=== PATIENT | female | born 1965 | race Caucasian/White ===

== ENCOUNTER 2016-07-14 13:04 | Emergency (ER) | payer OTHER ==
[~2016-07-14] VITALS: Ht 157.5 cm; Wt 48.6 kg
[~2016-07-14 13:04] MED LIST: AZITHROMYCIN250 MG PO; KEFLEX500 MG PO; MOTRIN400 MG PO; MOTRIN800 MG PO; NAPROXEN500 MG PO; NO MEDS; NOHOMEMEDS; NORCO 5/3251 TABLET PO; PERCOCET 5/31 TABLET PO; PREDNISONE10 MG PO; VENTOLIN HFA18 GM IH
[2016-07-14 14:27] LABS: HEMATOCRIT 43.4 % (36.0-46.0); MCH 32.9 PG (29.0-34.0); MCHC 34.3 G/DL (30.0-36.0); MCV 95.8 FL (83-99); MEAN PLAT.VOLUME 9.1 uM^3 (9.5-12.4); PLATELET COUNT 243 K/uL (156-360); RBC DIS.WIDTH-CV 12.8 % (11.8-14.6); RBC DIS.WIDTH-SD 43.4 % (39-53); RED BLOOD COUNT 4.53 M/uL (3.80-5.20)
[2016-07-14 14:32] LABS: CHLORIDE 104 mEq/L (99-109); SODIUM 140 mEq/L (136-147)
[2016-07-14 14:33] LABS: ADD MIUA? YES; BILIRUBIN NEGATIVE; BLOOD SMALL; COLOR YELLOW ((YELLOW)); GLUCOSE (STRIP) NEGATIVE; KETONES 20; LEUKOCYTES LARGE; NITRITE NEGATIVE; PROTEIN (STRIP) 30; UROBILINOGEN 0.2 MG/DL (0.2-1.0)
[2016-07-14 14:34] LABS: GLUCOSE 86 mg/dL (70-99)
[2016-07-14 14:35] LABS: ANION GAP 10 MEQ/L (2-14)
[2016-07-14 14:36] LABS: TOTAL BILIRUBIN 0.5 mg/dL (0.0-1.0)
[2016-07-14 14:38] LABS: ALKALINE PHOSPHATASE 72 IU/L (3-129); GFR ESTIMATE (CALCULATED) > 59 mL/min/
[2016-07-14 14:39] LABS: UREA NITROGEN (BUN) 7 mg/dL (9-23)
[2016-07-14 14:48] LABS: QUANTITATIVE HCG < 4.0 MIU/ML
[2016-07-14 14:58] LABS: LIPASE 16 U/L (1.0-51.0)
[2016-07-14 15:17] LABS: EPITHELIAL CELLS 2+ /HPF; RED BLOOD CELLS RARE /HPF (0-5)
[2016-07-14 15:18] LABS: BACTERIA 1+ /HPF; MUCUS NONE SEEN /LPF; UCUL ADDED? NO
[2016-07-14 18:43] VITALS: BP 141/83
[2016-07-15] MEDS ORDERED: PROAIR HFA8.5 GM IH (14:06)
[2016-07-16 12:58] LABS: CHLAMYDIA TRACHOMATIS NEGATIVE; NEISSERIA GONORRHOEAE NEGATIVE
== END 2016-07-14 18:45 | disposition left against medical advice (07) ==
LOC: EME 13:04
PROVIDERS: Physician Assistant
DX: N70.93 Salpingitis and oophoritis, unspecified (principal); F17.200 Nicotine dependence, unspecified, uncomplicated
CPT/HCPCS: 74176; 74177; 80053; 81003; 83690; 84702; 85027; 87210; 87491; 87591; 99281; 99284; J2270; J7040

== ENCOUNTER 2016-07-15 10:19 | Inpatient (IN) | payer OTHER ==
[~2016-07-15] VITALS: Ht 157.5 cm; Wt 49.0 kg
[2016-07-15 11:30] LABS: HEMATOCRIT 43.7 % (36.0-46.0); MCH 32.7 PG (29.0-34.0); MCHC 33.9 G/DL (30.0-36.0); MCV 96.7 FL (83-99); MEAN PLAT.VOLUME 9.1 uM^3 (9.5-12.4); PLATELET COUNT 276 K/uL (156-360); RBC DIS.WIDTH-CV 12.7 % (11.8-14.6); RBC DIS.WIDTH-SD 43.6 % (39-53); RED BLOOD COUNT 4.52 M/uL (3.80-5.20); WHITE BLOOD COUNT 14.4 K/uL (4.1-10.2)
[2016-07-15 11:32] LABS: BASOPHIL COUNT 0.1 K/uL (0-0.1); EOSINOPHIL (%) 0.4 % (0-5); EOSINOPHIL COUNT 0.1 K/uL (0-0.3); IMMATURE GRANULOCYTE (%) 0.3 % (0.0-0.7); IMMATURE GRANULOCYTE COUNT 0.4 K/uL; LYMPHOCYTE COUNT 2.4 K/uL (1.0-2.8); MONOCYTE (%) 7.9 % (3-12); MONOCYTE COUNT 1.1 K/uL (0-0.8); NEUTROPHIL (%) 73.8 % (45-76); NEUTROPHIL COUNT 10.7 K/uL (1.8-6.4)
[2016-07-15 11:40] LABS: INTER. NORMALIZED RATIO 1.1; PROTHROMBIN TIME 11.2 (9.2-11.2)
[2016-07-15 11:42] LABS: CHLORIDE 101 mEq/L (99-109); SODIUM 137 mEq/L (136-147)
[2016-07-15 11:44] LABS: GLUCOSE 76 mg/dL (70-99)
[2016-07-15 11:45] LABS: ANION GAP 13 MEQ/L (2-14)
[2016-07-15 11:46] LABS: TOTAL BILIRUBIN 0.5 mg/dL (0.0-1.0)
[2016-07-15 11:47] LABS: ALKALINE PHOSPHATASE 78 IU/L (3-129)
[2016-07-15 11:48] LABS: GFR ESTIMATE (CALCULATED) > 59 mL/min/
[2016-07-15 11:48] LABS: ADD MIUA? YES; BILIRUBIN NEGATIVE; BLOOD SMALL; COLOR YELLOW ((YELLOW)); GLUCOSE (STRIP) NEGATIVE; KETONES 80; LEUKOCYTES MODERATE; NITRITE NEGATIVE; PROTEIN (STRIP) 30; SPECIFIC GRAVITY 1.019 (1.000-1.030); UROBILINOGEN 0.2 MG/DL (0.2-1.0)
[2016-07-15 11:49] LABS: UREA NITROGEN (BUN) 6 mg/dL (9-23)
[2016-07-15 12:09] LABS: BACTERIA RARE /HPF; EPITHELIAL CELLS 1+ /HPF; MUCUS 1+ /LPF
[2016-07-15] MEDS ORDERED: PROAIR HFA8.5 GM IH (14:06)
[2016-07-15 16:16] LABS: HEMATOCRIT 37.7 % (36.0-46.0); MCH 33.2 PG (29.0-34.0); MCHC 34.5 G/DL (30.0-36.0); MCV 96.4 FL (83-99); MEAN PLAT.VOLUME 8.8 uM^3 (9.5-12.4); PLATELET COUNT 249 K/uL (156-360); RBC DIS.WIDTH-CV 12.5 % (11.8-14.6); RED BLOOD COUNT 3.91 M/uL (3.80-5.20); WHITE BLOOD COUNT 11.2 K/uL (4.1-10.2)
[2016-07-15 16:23] LABS: BASOPHIL COUNT 0.1 K/uL (0-0.1); EOSINOPHIL (%) 0.9 % (0-5); EOSINOPHIL COUNT 0.1 K/uL (0-0.3); IMMATURE GRANULOCYTE (%) 0.3 % (0.0-0.7); IMMATURE GRANULOCYTE COUNT 0.3 K/uL; LYMPHOCYTE COUNT 2.2 K/uL (1.0-2.8); MONOCYTE (%) 9.3 % (3-12); NEUTROPHIL (%) 69.6 % (45-76); NEUTROPHIL COUNT 7.8 K/uL (1.8-6.4)
[2016-07-15 16:58] VITALS: BP 123/79
[2016-07-15 21:20] VITALS: BP 128/74
[2016-07-15 23:50] VITALS: BP 138/84
[2016-07-16 04:03] VITALS: BP 145/82
[2016-07-16 06:50] VITALS: BP 129/69
[2016-07-16 07:03] LABS: BASOPHIL COUNT 0.1 K/uL (0-0.1); EOSINOPHIL (%) 1.1 % (0-5); EOSINOPHIL COUNT 0.1 K/uL (0-0.3); HEMATOCRIT 40.2 % (36.0-46.0); IMMATURE GRANULOCYTE (%) 0.3 % (0.0-0.7); LYMPHOCYTE COUNT 2.3 K/uL (1.0-2.8); MCH 31.6 PG (29.0-34.0); MCHC 33.1 G/DL (30.0-36.0); MCV 95.5 FL (83-99); MEAN PLAT.VOLUME 9.3 uM^3 (9.5-12.4); MONOCYTE (%) 12.1 % (3-12); MONOCYTE COUNT 1.4 K/uL (0-0.8); NEUTROPHIL (%) 65.2 % (45-76); NEUTROPHIL COUNT 7.3 K/uL (1.8-6.4); PLATELET COUNT 257 K/uL (156-360); RBC DIS.WIDTH-CV 12.7 % (11.8-14.6); RBC DIS.WIDTH-SD 44.2 % (39-53); RED BLOOD COUNT 4.21 M/uL (3.80-5.20); WHITE BLOOD COUNT 11.2 K/uL (4.1-10.2)
[2016-07-16 12:10] VITALS: BP 123/70
[2016-07-16 16:05] VITALS: BP 158/76
[2016-07-16 23:47] VITALS: BP 144/69
[2016-07-17 07:17] LABS: HEMATOCRIT 39.9 % (36.0-46.0); MCH 33.4 PG (29.0-34.0); MCHC 35.3 G/DL (30.0-36.0); MCV 94.5 FL (83-99); MEAN PLAT.VOLUME 9.6 uM^3 (9.5-12.4); PLATELET COUNT 275 K/uL (156-360); RBC DIS.WIDTH-CV 12.6 % (11.8-14.6); RBC DIS.WIDTH-SD 43.6 % (39-53); RED BLOOD COUNT 4.22 M/uL (3.80-5.20); WHITE BLOOD COUNT 11.1 K/uL (4.1-10.2)
[2016-07-17 07:39] LABS: BASOPHIL COUNT 0.1 K/uL (0-0.1); EOSINOPHIL (%) 1.4 % (0-5); EOSINOPHIL COUNT 0.2 K/uL (0-0.3); IMMATURE GRANULOCYTE (%) 0.2 % (0.0-0.7); LYMPHOCYTE COUNT 2.6 K/uL (1.0-2.8); MONOCYTE (%) 12.6 % (3-12); MONOCYTE COUNT 1.4 K/uL (0-0.8); NEUTROPHIL (%) 61.3 % (45-76); NEUTROPHIL COUNT 6.8 K/uL (1.8-6.4)
[2016-07-17] MEDS ORDERED: DOXYCYCLINE HY100 MG PO (08:15)
[2016-07-17] MEDS ORDERED: METRONIDAZOLE500 MG PO (08:15)
[2016-07-17] MEDS ORDERED: IBUPROFEN800 MG PO (08:16)
[2016-07-17 08:17] VITALS: BP 144/76
== END 2016-07-17 10:43 | disposition home or self-care (01) | DRG 759 ==
LOC: EME 10:19 → EDOF 13:59 → 2EAST 13:59 → EDOF 13:59 → 2EAST 16:17
PROVIDERS: Emergency Medicine; Obstetrics & Gynecology Obstetrics
DX: N70.03 Acute salpingitis and oophoritis (principal); A59.00 Urogenital trichomoniasis, unspecified; F17.200 Nicotine dependence, unspecified, uncomplicated
CPT/HCPCS: 74176; 74177; 76856; 80053; 81003; 83690; 84702; 85025; 85025 91; 85027; 85610; 87040; 87210; 87491; 87591; 99281; 99284; 99285; J0696; J1885; J2270; J7030; J7040; J7050; J7120